=== PATIENT | female | born 1975 | race Caucasian/White ===

== ENCOUNTER 2017-01-29 16:55 | Emergency (ER) | payer OTHER ==
[2017-01-29 17:04] VITALS: BMI 29.1
--- NOTE | 2017-01-29 17:12 | PDOC ---
History of Present Illness - General Chief Complaint: Weakness Stated Complaint: CONGESTION Time Seen by Provider: 01/29/17 17:08 - History of Present Illness Initial Comments: 01/29/17 17:45 The patient is a 41 year old female with no significant PMH who presents for evaluation of chest congestion, hoarse voice, and generalized fatigue. The patient reports that she was working harder then normal over the weekend moving boxes, has not slept well and continues to feel more fatigued than usual. She states that she also has been having a non-productive cough with chest congestion over the past 4 days with a hoarse voice for which she saw her primary care provider 2 days ago and did not feel it was needed to have any medications. She states that the last time she experienced these symptoms she was and her LMP was 1 month ago. She denies fevers, chills, SOB, chest pain, abdominal pain, nausea, vomiting, or changes with urination or bowel movements. Past History - Past Medical History Allergies/Adverse Reactions: Allergies Allergy/AdvReac Type Severity Reaction Status Date / Time morphine Allergy Itching Verified 01/29/17 17:05 peanut Allergy Difficulty Verified 01/29/17 17:05 Breathing Penicillins Allergy Hives Verified 01/29/17 17:05 shellfish derived Allergy Hives Verified 01/29/17 17:06 COPD: No Other medical history: NONE - Suicide/Smoking/Psychosocial Hx Smoking History: Never smoked Hx Alcohol Use: Yes (SOCIAL) Drug/Substance Use Hx: No Review of Systems - Review of Systems Comments:: 01/29/17 17:50 Constitutional: Fatigue and body aches. No fevers, chills HEENT: No Rhinorrhea, nasal congestion, visual changes Cardiovascular: No chest pain, syncope, palpitations, lightheadedness Respiratory: Cough. Chest congestion. No SOB, Hemoptysis, Gastrointestinal: No Abdominal pain, Nausea, Vomiting, Constipation, Diarrhea, Melena Genitourinary: No Dysuria, Frequency, Urgency, Hesitancy, Hematuria, Flank pain Musculoskeletal: No Myalgia, arthralgia Skin: No rashes, bruising, pallor Neurologic: No Headache, Dizziness, Numbness, Weakness, or Tingling Psychiatric: No Hallucinations. No SI or HI *Physical Exam - Vital Signs Last Vital Signs Temp Pulse Resp BP Pulse Ox 97.5 F L 82 20 149/77 97 01/29/17 17:00 01/29/17 17:00 01/29/17 17:00 01/29/17 17:00 01/29/17 17:00 - Physical Exam Comments: 01/29/17 17:52 General Appearance: Nourished. No Apparent Distress HEENT: EOMI, KEESHA. Mild Pharyngeal Erythema. No Tonsillar Exudate, Tonsillar Erythema Neck: No Cervical Lymphadenopathy Respiratory/Chest: Lungs Clear, Normal Breath Sounds. No Crackles, Rales, Rhonchi, Wheezing Cardiovascular: Regular Rhythm, Regular Rate. No Murmur, Gallops, Rubs Gastrointestinal/Abdominal: Normal Bowel Sounds, Soft. No Guarding, Rebound, Tenderness Musculoskeletal: No CVA Tenderness Extremity: Normal Capillary Refill Integumentary: Normal Color, Dry, Warm Neurologic: Fully Oriented, Alert, Normal Mood/Affect, Normal Response, Medical Decision Making - Medical Decision Making 01/29/17 17:52 The patient is a 41 year old female with no significant PMH who presents for evaluation of chest congestion, hoarse voice, and generalized fatigue. Given the patient's symptoms of chest congestions with body aches and fatigue, it is likely the patient's symptoms are due to a viral syndrome. It is also possible that the patient's high activity level contributed to her fatigue that brought her in. Given her similar symptoms when before, we will send a UA and urine preg to evaluate further. We will also send a rapid strep. We will continue to monitor and reassess. 01/29/17 18:17 UA and urine preg are negative. Rapid strep is negative. The patient's symptoms are likely due to a viral syndrome and fatigue from her activity over the weekend. We discussed return precautions with the patient and are comfortable discharging the patient home at this time with PCP follow up. The patient voiced understanding and is agreeable with the plan. *DC/Admit/Observation/Transfer Diagnosis at time of Disposition: Fatigue Qualifiers: Fatigue type: unspecified Qualified Code(s): R53.83 - Other fatigue - Discharge Dispostion Disposition: HOME Condition at time of disposition: Good Admit: No - Referrals Referrals: Nina Duke MD [Primary Care Provider] - - Patient Instructions Printed Discharge Instructions: DI for Fatigue Additional Instructions: Please return to the ER if you experience concerning or worsening symptoms including fevers, chest pain, or difficulty breathing. You urine results and test were negative. We recommend that you continue to get lots of rest. Please call to schedule a follow up appointment with your primary care provider if you have continued symptoms. You should feel improvement over the next few days with sufficient rest. - Post Discharge Activity
[2017-01-29 17:55] LABS: URINE APPEARANCE SLCLOUDY; URINE BILIRUBIN NEGATIVE (NEGATIVE); URINE BLOOD NEGATIVE (NEGATIVE); URINE COLOR YELLOW; URINE GLUCOSE (UA) NEGATIVE (NEGATIVE); URINE KETONE NEGATIVE (NEGATIVE); URINE NITRITE NEGATIVE (NEGATIVE); URINE PROTEIN NEGATIVE (NEGATIVE); URINE UROBILINOGEN NEGATIVE mg/dL (0.2-1.0)
--- NOTE | 2017-01-29 18:24 | PDOC ---
Attending Attestation - Resident Resident Name: Jakob Paganel - ED Attending Attestation I have performed the following: I have examined & evaluated the patient, The case was reviewed & discussed with the resident, I agree w/resident's findings & plan, Exceptions are as noted - HPI HPI: 01/29/17 18:23 41-year-old female presents because of fatigue and concern about . She did see her primary care doctor last week, but that was a follow-up visit to recheck wound in her nares She has no fever, no chills, no nausea, no vomiting, no diarrhea, no productive cough. No chest pain or abdominal pain - Physicial Exam PE: 01/29/17 18:24 41 male, WNWD p/w fatigue. she is concerned she nay be head wnl nexk supple lungs cta b.l cvs [id number] abd soft,nontender ext no e/e/e neuro axox3 ambulatory skin no rashes psych appropriate - Medical Decision Making 01/29/17 18:26 urinalysis was NEGATIVE for ,no infection
[2017-01-29 18:26] VITALS: BP 116/92; PULSE 70; TEMP 98.1
[2017-01-29 20:46] LABS: URINE LEUK ESTERASE Negative (NEGATIVE)
== END 2017-01-29 18:27 | disposition home or self-care (01) ==
LOC: JER 16:55
DX: R53.83 Other fatigue (principal)
CPT/HCPCS: 81003; 84703; 87070; 87430; 99284-25